=== PATIENT | male | born 1990 | race Caucasian/White ===

== ENCOUNTER 2021-07-19 23:19 | Emergency (ER) | payer SELFPAY ==
[~2021-07-19] VITALS: Ht 165.1 cm; Wt 79.4 kg
--- NOTE | 2021-07-19 23:32 | NUR ---
PT AMBULATED TO ER C/O SI. A/O X3. CALM AND COOPERATIVE AT THIS TIME. PT HAS NO SPECIFIC PLANS AT THIS MOMENT. PROVIDED PT WITH CALM, QUIET AND SAFE ENVIRONMENT CLOSE TO NURSE'S STATION.
[2021-07-19 23:45] LABS: HEMATOCRIT 36.5 % (36.7-47.1); MEAN CORPUSCULAR HEMOGLOBIN 29.7 uug (23.8-33.4); PLATELET COUNT (AUTO) 272 K/uL (152-348)
[2021-07-19 23:47] LABS: *BILIRUBIN,URIN NEGATIVE (NEGATIVE); *BLOOD, URINE NEGATIVE (NEGATIVE); *CLARITY,URINE CLEAR (CLEAR); *COLOR,URINE YELLOW (YELLOW); *KETONES,URINE NEGATIVE (NEGATIVE); *UROBILINOGEN,URINE 0.2 E.U./dl (NORMAL); LEUKOCYTE ESTERASE ,URINE NEGATIVE (NEGATIVE); NITRITE, URINE NEGATIVE (NEGATIVE); UGLUCOSE NEGATIVE (NEGATIVE)
[2021-07-20 00:05] LABS: ALANINE AMINOTRANSFERASE 57 U/L (16-63); ALKALINE PHOSPHATASE 112 U/L (50-136); ASPARTATE AMINOTRANSFERASE 42 U/L (15-37); BILIRUBIN,DIRECT 0.1 mg/dL (0.0-0.2); BILIRUBIN,TOTAL 0.3 mg/dL (0.2-1.0); CARBON DIOXIDE 28 mmol/L (21-32); CHLORIDE 106 mmol/L (98-107); CREATININE 0.9 mg/dL (0.6-1.3); GLUCOSE 108 mg/dL (74-106); POTASSIUM 3.6 mmol/L (3.5-5.1); TOTAL PROTEIN, SERUM 7.9 g/dL (6.4-8.2); UREA NITROGEN, BLOOD 14 mg/dL (7-18)
--- NOTE | 2021-07-20 00:10 | NUR ---
SPOKE WITH IMPLEMENTATION ARCHITECT UNABLE TO OBTAIN 1:1 SITTER AT THIS MOMENT.
[2021-07-20 00:15] LABS: ETHANOL 68 MG/DL (0-0)
[2021-07-20 00:17] LABS: *AMPHETAMINE, URINE POSITIVE (NEGATIVE); *CANNABINOID, URINE POSITIVE (NEGATIVE); *COCCAINE, URINE NEGATIVE (NEGATIVE); *OPIATE, URINE NEGATIVE (NEGATIVE); *PHENCYCLIDINE SCREEN,URINE NEGATIVE (NEGATIVE)
[2021-07-20 01:04] LABS: ACETAMINOPHEN < 2.0 ug/mL (10-30)
--- NOTE | 2021-07-20 02:00 | NUR ---
FAXED OVER PT'S FACESHEET AND CLINICALS TO [facility].
--- NOTE | 2021-07-20 02:30 | NUR ---
GIORGI FROM [facility] RETURNED CALL AND STATED PT IS UNABLE TO BE ACCOMODATED AT [facility]. GIORGI'S #[phone]
--- NOTE | 2021-07-20 02:51 | NUR ---
CALLED [facility] AGAIN AND STATED SHE WILL BE ON HER WAY.
--- NOTE | 2021-07-20 03:46 | NUR ---
ORESTES AT BEDSIDE TO [facility]
--- NOTE | 2021-07-20 05:07 | NUR ---
PT NOTED TO BE IN BED WATCHING TV. DENIES ANY SI/HI. DENIES ANY PAIN/DISCOMFORT AT THIS TIME. ALL NEEDS ARE MET AND ATTENDED.
--- NOTE | 2021-07-20 06:59 | NUR ---
PT IN BED EYES CLOSED. BREATHING EVEN AND UNLABORED. VSS.
--- NOTE | 2021-07-20 07:00 | NUR ---
Received pt watching TV, not in any form of distress. No complaints of pain/discomfort, no verbalization of SI at this time. Vitals stable.
--- NOTE | 2021-07-20 08:15 | NUR ---
Patient was provided food at bedside.
--- NOTE | 2021-07-20 08:30 | NUR ---
Patient provided handouts of homeless packet and tap card for transportation, extra food given but pt refused to sign dc papers. Patient in stable condition.
--- NOTE | 2021-07-20 08:35 | NUR ---
Pt refusing to sign written ACI and refusing to leave the ER. States he wants to stay and sleep here. Plan of care has been discussed with pt by ER staff, ER physician and PET team. Pt became agitated and yelling at staff. Irwni Rodriguez called per hospital protocol.
--- NOTE | 2021-07-20 08:45 | NUR ---
Pt ambulatory out of ER with steady gait, NAD noted.
[2021-07-20 08:49] VITALS: BP 123/80
== END 2021-07-20 08:50 | disposition home or self-care (01) ==
LOC: ER 23:19
DX: R45.851 Suicidal ideations (principal); Z59.00 Homelessness unspecified; Z20.822 Contact with and (suspected) exposure to COVID-19
CPT/HCPCS: 36415; 85025; A4663; G0480